=== PATIENT | male | born 2005 | race Caucasian/White ===

== ENCOUNTER 2025-10-08 02:44 | Emergency (ER) | payer BC, SELFPAY ==
[2025-10-08 02:52] VITALS: BP 140/89
[2025-10-08 03:00] VITALS: BP 133/87
[2025-10-08 03:09] VITALS: BMI 31.1
--- NOTE | 2025-10-08 03:46 | ED.GENMED ---
History of Present Illness
General
Chief Complaint: Alcohol Problem
Source: patient, ambulance crew and other
Exam Limitations: none
Time Seen by Provider: 10/08/25 03:40
Nursing documentation reviewed up to this point in time: agreed with
History of Present Illness
History of Present Illness:
Note:
CHIEF COMPLAINT(S)
Alcohol intoxication
HISTORY OF PRESENT ILLNESS
The patient is a 20-year-old male who presents after experiencing an episode of alcohol intoxication. According to the patients account, he was at a bar and consumed a significant amount of alcohol, leading to vomiting in the parking lot. The
patient does not recall much about the event and denies the use of any substances other than alcohol. He reports feeling unwell at that time but is currently feeling 'good' and does not have any pain. The patient confirms not having eaten much prior
to the episode and did not fall or sustain any injuries during the incident.
REVIEW OF SYSTEMS
- Gastrointestinal: Vomiting after alcohol consumption.
- Neurological: No pain currently; denies injury.
PHYSICAL EXAM
General: Alert, no acute distress. intoxicated
Skin: Warm, dry.
Head: Normocephalic, atraumatic.
Neck: Supple, trachea midline.
Eye Ears, nose, mouth, and throat: Oral mucosa moist.
Cardiovascular: Normal peripheral perfusion, No edema.
Respiratory: Respirations are non-labored.
Gastrointestinal: Abdomen nondistended
Back: Normal range of motion, Normal alignment.
Musculoskeletal: Normal range of motion, normal strength.
Neurological: Alert and oriented to person, place, time, and situation, No focal neurological deficit observed.
Psychiatric: Cooperative, appropriate mood & affect.
PLAN
Patient to remain hydrated with fluids. Advised to rest and abstain from alcohol intake. Suggested bfym-buq-oyqjjby medication such as acetaminophen for any headache. Arrange for safe transport home with a designated industrial truck driver.
DIFFERENTIAL DIAGNOSIS
The Differential Diagnosis includes, in no particular order and is not limited to:
1. Acute alcohol intoxication
2. Alcohol poisoning
3. Gastritis
4. Hypoglycemia
5. Dehydration
6. Metabolic acidosis
7. Head injury (ruled out by history and absence of trauma)
8. Alcohol withdrawal (consider if symptoms persist or worsen)
9. Acute pancreatitis
10. Esophagitis
Disposition:
SUMMARY OF ENCOUNTER
The patient, a 20-year-old male, presented to the emergency department with alcohol intoxication following decreased responsiveness. Brought in by EMS, he was initially non-responsive but became awake and oriented during the evaluation. A
responsible friend accompanied the patient, ensuring a safe transport arrangement home with a sober industrial truck driver.
ASSESSMENT
Acute alcohol intoxication.
PLAN
The patient was advised to maintain hydration, rest, and avoid alcohol intake. Safety precautions were discussed.
PATIENT EDUCATION AND COUNSELING
The patient was counseled on the importance of hydration, abstaining from further alcohol consumption, and avoiding risky situations while intoxicated.
MEDICATION RECONCILIATION
Acetaminophen was suggested for any potential headache.
MEDICAL DECISION MAKING
-Complexity of Data Reviewed: Acute alcohol intoxication, and Differential Diagnosis includes:
1. Acute alcohol intoxication
2. Alcohol poisoning
3. Gastritis
4. Hypoglycemia
5. Dehydration
6. Metabolic acidosis
7. Alcohol withdrawal
8. Acute pancreatitis
9. Esophagitis
-Risk: Consideration of Admission/Observation: Escalation of care including admission/observation was considered given the complexity and risk of the patients presenting complaint, exam findings, and underlying conditions. However, the patient is
deemed safe for outpatient management with close follow-up due to no acute life-threatening processes, stable vitals, and a reliable support system in place.
DIAGNOSIS
Acute alcohol intoxication (ICD-10: F10.129).
Phy Exam
Physical Exam
Physical Exam:
.
Scores
Withdrawal Assessment of Alcohol
Withdrawal Assessment Completed?: Not applicable
Course
Vital Signs
Initial and Last Documented VS:
Initial Vital Signs
BP
140/89
10/08/25 02:52
Last Documented Vital Signs
Temp Pulse Resp BP
97.6 F 94 27 133/87
10/08/25 03:10 10/08/25 03:00 10/08/25 03:00 10/08/25 03:00
*Pulse Oximetry
SaO2: 98
Oxygen Mode of Delivery: Room air
Patient hypoxic: no
*Critical Care Note
Total Time (30-74mins, 75-104mins- exclusive of procedures): Not Applicable
ED Attending Note
-
Portions of this chart may have been created with voice recognition software.� Occasional wrong word or��sound alike� substitutions may have occurred due to the inherent limitations of voice recognition software.
Discharge Plan
Departure
Patient Disposition: Home (Routine Discharge)
Date of Disposition: 10/08/25
Time of Disposition: 03:47
Patient with high blood pressure during this ER visit?: Yes
Condition: Good
Discharge Problem:
Alcohol intoxication
Instructions: Alcohol intoxication - ED (DC), BLOOD PRESSURE
Activity Restrictions/Additional Instructions:
Return for any concerns.
Interventions
Interventions:
*Risk Screen - Suicide Last Done: 10/08/25 03:12
*General Assessment Last Done: 10/08/25 03:12
*Neglect/Abuse Screening Last Done: 10/08/25 03:12
*ED- Fall Risk Assessment Last Done: 10/08/25 03:12
*ED COVID-19 Vaccine History Last Done: 10/08/25 03:12
*ED Influenza Vaccine History Last Done: 10/08/25 03:12
Discharge Date and Time
Print Language: GREENLANDIC
[2025-10-08 03:53] VITALS: BP 128/74
== END 2025-10-08 04:07 | disposition home or self-care (01) ==
LOC: EMR 02:44
PROVIDERS: EMERGENCY PHYSICIAN Emergency Medicine
DX: F10.129 Alcohol abuse with intoxication, unspecified (principal)
CPT/HCPCS: 99283